=== PATIENT | female | born 1990 | race African-American/Black ===

== ENCOUNTER 2016-09-24 21:34 | Emergency (ER) | payer MEDICAID ==
[~2016-09-24] VITALS: Ht 162.6 cm; Wt 61.2 kg
[2016-09-24] MEDS ORDERED: ALBUTEROL2.5 MG/3 M INH (21:41)
[2016-09-24] MEDS ORDERED: Acetaminophen 500mg (ES) tab ORAL ONE (22:00)
--- NOTE | 2016-09-24 22:01 | Emergency Room Report ---
History of Present Illness General Chief Complaint: Abdominal Pain Source: Patient, EMS Present Illness HPI This is a 26-year-old female who is 3, para 1, A 1, approximately 6-7 weeks by date. She presents with chief complaint of abdominal cramping pain. Also had some spotting. Onset about an hour half to 2 hours ago. Denies any fever chills denies any trauma. Pain is 8/10. Denies any dysuria frequency. She came by EMS. Allergies: Coded Allergies: No Known Allergies (Unverified , 09/24/16) Patient History Past Medical History: see triage record, old chart reviewed Past Surgical History: other Pertinent Family History: none Social History: Denies: smoking Last Menstrual Period: 6-9 WEEKS Now: Yes - 6-9 WEEKS : 3 Para: 1 Immunizations: other Reviewed Nursing Documentation: PMH: Agreed, PSxH: Agreed Nursing Documentation-PMH Hx Asthma: Yes Review of Systems Eye: Denies: blurred vision, eye pain ENT: Denies: ear pain, nose congestion, throat swelling Respiratory: Denies: cough, shortness of breath Cardiovascular: Denies: chest pain, palpitations Gastrointestinal: Reports: abdominal pain, Denies: diarrhea, nausea, vomiting Musculoskeletal: Denies: back pain, joint pain Skin: Denies: rash Neurological: Denies: headache, numbness Endocrine: Denies: increased thirst, increased urine Hematologic/Lymphatic: Denies: easy bruising All Other Systems: negative except mentioned in HPI Physical Exam Vital Signs Date Time Temp Pulse Resp B/P Pulse Ox O2 Delivery O2 Flow Rate FiO2 09/24/16 21:36 98.1 87 18 127/77 100 Room Air vitals normal Sp02 EP Interpretation: reviewed, normal General Appearance: well appearing, no apparent distress, alert Head: normocephalic, atraumatic Eyes: bilateral eye EOMI, bilateral eye PERRL ENT: hearing grossly normal, normal pharynx Neck: full range of motion, supple, no meningismus Respiratory: chest non-tender, lungs clear, normal breath sounds Cardiovascular #1: regular rate, rhythm, no murmur Gastrointestinal: normal bowel sounds, no mass, no organomegaly, no bruit, non- distended, tenderness - Suprapubic Musculoskeletal: back normal, gait/station normal, normal range of motion Psychiatric: mood/affect normal Skin: warm/dry Medical Decision Making Diagnostic Impression: Primary Impression: Threatened in first trimester ER Course Patient presents with pelvic pain and spotting. Beta-hCG is elevated but ultrasound only showed a gestational sac without a pole or heartbeat. This may be early versus a blighted ovum. Patient actually has an appointment later on today for elective . We'll discharge home. No evidence of ectopic. Lab Results Impression labs with elevated hCG. Other X-Ray Diagnostic Results Other X-Ray Diagnostic Results : Date: September 25, 2016 Time: 05:42 CT/MRI/US Diagnostic Results CT/MRI/US Diagnostic Results : Imaging Test Ordered: Pelvic ultrasound Impression gestational sac without pole per machine technician. Last Vital Signs Date Time Temp Pulse Resp B/P Pulse Ox O2 Delivery O2 Flow Rate FiO2 09/24/16 21:36 98.1 87 18 127/77 100 Room Air Status: improved Disposition: HOME, SELF-CARE Condition: Stable Scripts Hydrocodone/Acetaminophen 5-325* (HYDROCODONE/ACETAMINOPHEN 5-325*) 1 Each Tablet 1 TAB ORAL Q6H Y for For Pain, #10 TAB 0 Refills Prov: ANTHONY SHIN M.D. 09/25/16 Patient Instructions: Abdominal Pain During Additional Instructions: Follow up in 1 week for recheck. Follow up with your OB. Return if worse. ANTHONY SHIN M.D. September 24, 2016 22:01
[2016-09-24 22:31] VITALS: BP 124/81
[2016-09-24 22:37] LABS: BASOPHILS % (AUTO) 0.6 % (0.0-2.0); EOSINOPHILS % (AUTO) 1.9 % (0.0-3.0); LYMPHOCYTES % (AUTO) 22.6 % (20.0-45.0); MEAN CORPUSCULAR HEMOGLOBIN 30.2 PG (27.0-31.0); MEAN CORPUSCULAR HGB CONC 33.4 G/DL (32.0-36.0); MEAN CORPUSCULAR VOLUME 91 FL (80-99); MEAN PLATELET VOLUME 11.1 FL (6.5-10.1); MONOCYTES % (AUTO) 8.5 % (1.0-10.0); NEUTROPHILS % (AUTO) 66.4 % (45.0-75.0); PLATELET COUNT 126 K/UL (150-450); RED BLOOD COUNT 3.45 M/UL (4.20-5.40); RED CELL DISTRIBUTION WIDTH 13.4 % (11.6-14.8); WHITE BLOOD COUNT 7.2 K/UL (4.8-10.8)
[2016-09-24 22:38] LABS: APPEARANCE,URINE CLEAR; KETONES,URINE 4+ (NEGATIVE); LEUKOCYTE ESTERASE ,URINE 1+ (NEGATIVE); NITRITE,URINE NEGATIVE (NEGATIVE); PH,URINE 5 (4.5-8.0); PROTEIN,URINE NEGATIVE (NEGATIVE); UROBILINOGEN,URINE NORMAL MG/DL (0.0-1.0)
[2016-09-24 22:42] LABS: BACTERIA,URINE FEW /HPF; RBC,URINE 0-2 /HPF (0 - 2); SQUAMOUS EPITHELIAL CELL,UR FEW /LPF (NONE/OCC)
[2016-09-24 22:50] LABS: ANION GAP 17 (5-15); CALCIUM 8.6 mg/dL (8.6-10.2); CARBON DIOXIDE 23 mEQ/L (20-30); CHLORIDE 97 mEQ/L (98-107); CREATININE 0.6 mg/dL (0.5-0.9); GLOMERULAR FILTRATION RATE > 60 mL/min (>60); HEMOLYSIS 1; POTASSIUM 3.3 mEQ/L (3.4-4.9); SODIUM 137 mEQ/L (135-145)
[2016-09-24] MEDS ORDERED: Norco 5mg/325mg tab ONE (23:59)
[2016-09-25] MEDS ORDERED: HYDROCODON-ACE1 EA15 ORAL (00:04)
[2016-09-25] MEDS ORDERED: Norco 5mg/325mg tab ORAL ONE (00:15)
[2016-09-25 00:50] VITALS: BP 121/80
--- NOTE | 2016-09-25 09:12 | Diagnostic Imaging Report ---
Indication:Lower abdominal and pelvic pain. Positive home test Technique: Grayscale and duplex Doppler imaging of the pelvis performed utilizing a transabdominal scan and endovaginal scan. Comparison: None Findings: There is evidence of an intrauterine . There is identification of a gestational sac and a yolk sac. Based on mean sac diameter measurements, gestational age is estimated at 6 weeks 6 days. At the size of the gestational sac (assuming endovaginal scan measurements are accurate), one should see a pole. The findings are therefore suspicious for an abnormal intrauterine . Correlation with quantitative beta-hCG is recommended. This should be obtained in a serial format to assess for the trend, which I suspect will be downward. Suspect this is an incomplete spontaneous . Followup and clinical evaluation are recommended. Small amount of free fluid present. The ovaries are seen and appear normal. Right ovary 2 x 2.2 x 1.5 CM. Left ovary 3.7 x 2.4 x 2.2 CM. Impression: Intrauterine . Suspect incomplete spontaneous . Discussion as above. Recommend serial quantitative beta-hCG, clinical evaluation and followup ultrasound.
== END 2016-09-25 00:05 | disposition home or self-care (01) ==
LOC: EDBD 21:34 → EMR 22:00
DX: O20.0 Threatened abortion (principal); Z3A.00 Weeks of gestation of pregnancy not specified; J45.909 Unspecified asthma, uncomplicated
CPT/HCPCS: 36415; 76830; 76856; 80048; 81003; 84702; 85025; 86850; 86900; 86901; 96374; 96375; 99284; J2405

== ENCOUNTER 2017-05-06 14:38 | Emergency (ER) | payer MEDICAID ==
[~2017-05-06] VITALS: Ht 167.6 cm; Wt 68.9 kg
[~2017-05-06 14:38] MED LIST: ALBUTEROL2.5 MG/3 M INH; HYDROCODON-ACE1 EA15 ORAL
[2017-05-06 14:40] VITALS: BP 140/87
[2017-05-06] MEDS ORDERED: BENADRYL25 MG ORAL (15:41)
[2017-05-06] MEDS ORDERED: FLONASE ALLERG9.9 ML NS (15:41)
[2017-05-06 15:45] VITALS: BP 120/68
--- NOTE | 2017-05-06 17:16 | Diagnostic Imaging Report ---
Indication: COUGH Technique: One view of the chest Comparison: none Findings: Lungs and pleural spaces are clear. Heart size is normal. Impression: No acute process
--- NOTE | 2017-05-06 21:01 | Emergency Room Report ---
History of Present Illness General Chief Complaint: General Complaint Source: Patient Present Illness HPI The patient is a 27-year-old female brought in by ambulance after she states she coughed up blood today. She denies any medical history besides asthma. She states that she coughed up one small piece of dried dark blood. She does admit to recent nasal congestion. She denies any other symptoms. She denies nausea, vomiting, fever, chills, pain, SOB, CP Allergies: Coded Allergies: No Known Allergies (Unverified , 09/24/16) Patient History Past Medical History: see triage record Pertinent Family History: none Last Menstrual Period: 04/06/17 Now: No Reviewed Nursing Documentation: PMH: Agreed, PSxH: Agreed Nursing Documentation-PMH Past Medical History: No History, Except For Hx Asthma: Yes Review of Systems All Other Systems: negative except mentioned in HPI Physical Exam Vital Signs Date Time Temp Pulse Resp B/P (MAP) Pulse Ox O2 Delivery O2 Flow Rate FiO2 05/06/17 14:32 98.6 88 18 140/87 99 Room Air Sp02 EP Interpretation: reviewed, normal General Appearance: no apparent distress, alert, GCS 15, non-toxic Head: normocephalic, atraumatic Eyes: bilateral eye normal inspection, bilateral eye PERRL ENT: hearing grossly normal, normal pharynx, no angioedema, normal voice, uvula midline, nasal congestion Neck: full range of motion, supple/symm/no masses Respiratory: chest non-tender, lungs clear, normal breath sounds, speaking full sentences Cardiovascular #1: regular rate, rhythm, no edema Musculoskeletal: back normal, gait/station normal, normal range of motion, non- tender Neurologic: alert, oriented x3, responsive, motor strength/tone normal, sensory intact, speech normal Psychiatric: judgement/insight normal, memory normal, mood/affect normal, no suicidal/homicidal ideation Skin: normal color, no rash, warm/dry, well hydrated Lymphatic: no adenopathy Medical Decision Making PA Attestation Dr. Gibbs is my supervising physician. Patient management was discussed with my supervising physician Diagnostic Impression: Primary Impression: Rhinitis Qualified Codes: J00 - Acute nasopharyngitis [common cold] ER Course The patient is a 27-year-old female brought in by ambulance after she states she coughed up blood today. Differential diagnosis include but not limited to pharyngitis, rhinitis, sinusitis, AOM, bronchitis, PNA PE: No apparent distress. No TTP over maxillary or frontal sinuses. Lungs CTA bilat. No wheezing. No accessory muscle use. Heart: RRR, no abnormal heart sounds Ears: external auditory canal clear. Non erythematous. Bilat TM intact. Cone of light present bilat. No bulging of TM. No serous fluid seen. + nasal congestion and inflammation no anterior cervical lymphad No tonsillar exudate. Uvula midline.Oropharynx non erythematous CXR unremarkable. Patient discharged home with prescription for Flonase and will follow up with primary doctor Laboratory Tests Test 05/06/17 15:05 Urine HCG, Qualitative Negative Lab Results Impression preg: neg Chest X-Ray Diagnostic Results Chest X-Ray Diagnostic Results : Chest X-Ray Ordered: Yes # of Views/Limited/Complete: 1 View Indication: Other - cough EP Interpretation: Yes PA Xray: Interpretation reviewed, by supervising MD, and agrees with findings. Interpretation: no consolidation, no effusion, no pneumothorax, no acute cardiopulmonary disease Impression: No acute disease Electronically Signed by: Juancho Cali PA-C Last Vital Signs Date Time Temp Pulse Resp B/P (MAP) Pulse Ox O2 Delivery O2 Flow Rate FiO2 05/06/17 15:45 68 18 120/68 99 Room Air 05/06/17 14:40 98.6 Status: improved Disposition: HOME, SELF-CARE Condition: Improved Scripts Diphenhydramine Hcl* (BENADRYL*) 25 Mg Capsule 25 MG ORAL Q6H Y for For Cough, #20 CAP Prov: JUANCHO CALI.A. 05/06/17 Fluticasone Propionate (Flonase Allergy Relief) 9.9 Ml [place].susp 1 SPRAYS NS DAILY, #10 ML Prov: JUANCHO CALI P.A. 05/06/17 Patient Instructions: Allergic Rhinitis Additional Instructions: I discussed my findings with the patient. All questions and concerns have been answered. Treatment and medication compliance have been addressed. I advised the patient that they need to follow up with PMD in 3-5 days. Return to ED if symptoms worsen, new symptoms arise, or if needed for any reason. Patient verbalized understanding of discharge instructions. JUANCHO CALI May 06, 2017 21:01
== END 2017-05-06 15:45 | disposition home or self-care (01) ==
LOC: EDBD 14:38 → EMR 14:52
DX: J00 Acute nasopharyngitis [common cold] (principal); J45.909 Unspecified asthma, uncomplicated
CPT/HCPCS: 71010; 81025; 99283